=== PATIENT | female | born 1960 | race Caucasian/White ===

== ENCOUNTER 2024-01-21 04:09 | Emergency (ER) | payer BC, SELFPAY ==
[2024-01-21] VITALS (15 sets, daily range): BP systolic 132–191; BP diastolic 67–86; BMI 37.0
[2024-01-21 04:34] LABS: % Basophils 0.4 % (0-2); % Immature Granulocytes 0.2 % (0-0.5); % Lymphocytes 26.2 % (20.5-51.1); % Monocytes 10.1 % (1.7-9.3); % Neutrophils 58.1 % (42.2-75.2); Absolute Eosinophils 0.4 10^3/uL (0-0.7); Absolute Lymphocytes 2.2 10^3/uL (1.2-3.4); Absolute Monocytes 0.9 10^3/uL (0.1-0.6); Absolute Neutrophils 4.9 10^3/uL (1.4-6.5); Hematocrit 35.4 % (37.0-47.0); Hemoglobin 11.4 g/dL (12.0-16.0); Mean Corp Hgb Conc. 32.2 g/dL (33.0-37.0); Mean Corpuscular Hgb 24.3 pg (27.0-31.0); Mean Corpuscular Volume 75.3 fL (81.0-99.0); Mean Platelet Volume 8.8 fL (7.4-10.4); Nucleated Red Blood Cells % 0 %; Platelet Count 354 10^3/uL (130-400); Red Cell Dist. Width 17.5 % (11.5-14.5); White Blood Cell Count 8.5 10^3/uL (4.8-10.8)
[2024-01-21 04:57] LABS: ALT (SGPT) 21 U/L (0-35); AST (SGOT) 25 U/L (14-36); Albumin 3.9 g/dl (3.5-5.0); Alkaline Phosphatase 102 U/L (38-126); Blood Urea Nitrogen 15 mg/dl (7-17); Calcium 9.2 mg/dl (8.4-10.2); Carbon Dioxide 23 mmol/L (22-30); Chloride 108 mmol/L (98-107); Glucose 114 mg/dl (70-99); Lipase 112 U/L (23-300); Potassium 4.1 mmol/L (3.5-5.1); Sodium 141 mmol/L (135-145); Total Bilirubin 0.4 mg/dl (0.2-1.3); eGFR > 60.00
[2024-01-21 05:14] LABS: NT-proBNP 1190 pg/ml; Troponin I < 0.012 ng/ml
--- NOTE | 2024-01-21 06:00 | ED.GENMED ---
History of Present Illness
General
Chief Complaint: Breathing Problem
Time Seen by Provider: 01/21/24 06:00
Travel History
Have you had any contact with someone who has COVID-19?: No
Do you have any symptoms of coronavirus? Fever > 100 degrees, chills, cough, shortness of breath, sore throat, loss of taste or smell, muscle aches, or headache?: No
History of Present Illness
History of Present Illness:
HPI: A few hours ago, the patient started having abrupt onset pleuritic chest discomfort. This feels unlike asthma exacerbation and feels unlike the time she had thoracic aortic dissection 4 months ago. She states that she has had some
complications from the dissection and had to go back to the OR for revision�this was managed at [facility]. She has no lower extremity edema. However she does report that her left lower extremity is usually larger than her right lower extremity
chronically. The patient has no symptoms into the left upper extremity.
EXAM:
GENERAL: Well appearing in no distress, room air sats varied from 93-97%
HEENT: Moist oral mucosa
CARDIOVASCULAR: No murmurs, normal heart rate, regular rhythm, mild chest wall tenderness, surgical wound noted to the anterior chest wall in the midline, vehicle monitor technician device noted anterior chest wall
PULMONARY: Very mild respiratory distress, with some increased work of breathing, breath sounds are clear and equal
ABDOMEN: Soft with no peritoneal signs, no tenderness
NEUROLOGIC: Excellent strength all extremities, no coordination deficits
PSYCHIATRIC: Appropriate mental status, normal insight and judgement
EXTREMITIES: Nontender, no edema to the right, trace on the left, moves all extremities equally, easily palpable left radial and left ulnar artery pulses
SKIN: No rash, no lesions
TIME OF INITIAL ENCOUNTER: 6:10 AM
NUMBER AND COMPLEXITY OF PROBLEMS ADDRESSED AT THE ENCOUNTER
� Chronic conditions affecting care: Asthma, former smoker, high blood pressure, has had AAA repair
� Acute Exacerbation and/or Progression of Chronic Illness: This is an acute problem
� Differential Diagnosis includes: PE, asthma exacerbation, nonspecific pleuritic chest wall pain,
AMOUNT AND/OR COMPLEXITY OF DATA TO BE REVIEWED AND ANALYZED
� I performed an independent evaluation of and my interpretation is:
EKG: Sinus 61, left axis deviation, nonspecific ST abnormality
CT: CTA personally reviewed�no evidence for PE
X-rays:
Laboratory Studies: White count 8.5, hemoglobin 11.4, chemistries unremarkable, troponin less than 0.012, BNP 1190
Other:
� Review of other/old records: The patient was transferred to [facility] 4 months ago for aortic dissection; the patient was admitted with asthma exacerbation in 2019
� Clinical information was obtained by an independent historian: None needed
� Prescriptions/Medications Considered but not given:
� Further testing considered but not performed:
RISK OF COMPLICATIONS AND/OR MORBIDITY OR MORTALITY OF PATIENT MANAGEMENT
� Social determinants of health affecting care:
� Discussion with other providers: As the radiologist did comment on a focal dissection involving the left axillary and subclavian artery, I did speak to vascular, Dr. Conteh and the BOOSTER PUMP OPERATOR; Dr. Conteh did evaluate the patient in the ED
and does not have concern for the axillary/subclavian artery finding on CTA. However he did ask me to contact cardiothoracic surgery here to review the images of the chest. I spoke to Dr Luna was not able to immediately review the images on
the computer but I did send a video of the CTA to his phone. He does encourage close outpatient follow-up with their surgeon at [facility].
� Escalation of care including admission/observation vs risk of discharge considered: We initially try Toradol for pain. Her lungs are clear. CTA of the chest obtained to evaluate for PE. On reassessment at 8:30 AM, the
patient feels improved after Toradol was given. Although BNP is elevated, the patient's main symptom is pain. The pain has improved with Toradol. I have relatively low suspicion for heart failure.
Past History
Past History
ED Past Medical History: Asthma, HTN, Hypercholesterolemia, Psychiatric (depression) and Other (PNA)
ED Past Surgical History: Cholecystectomy
Social History
Tobacco: Former smoker
Alcohol: Occasional
Drug: None
Personal:
Living: with family
Employment: Employed
Family History
Family History: Diabetes
Phy Exam
Physical Exam
Physical Exam:
See HPI
Scores
Heart Failure Risk
Heart Failure Risk Score: Not Applicable
Course
Orders/Labs/Results
Orders:
Orders
01/21/24 04:13
Electrocardiogram (*1) Urgent
Reason for Study: Shortness of Breath
EKG- Treatment ONCE
01/21/24 04:27
Complete Blood Count/With Diff Urgent
Comprehensive Metabolic Panel Urgent
Lipase Urgent
NT-proBNP Urgent
Troponin I Urgent
01/21/24 06:12
CT Chest Pe Study Urgent
Comment:
Reason For Exam: abrupt pleuritic CP/SOB; recent dissection repair
Ketorolac [Toradol] 15 mg IV NOW STA
01/21/24 06:36
PT/INR [Prothrombin Time] Urgent
PTT Urgent
01/21/24 08:44
Troponin I Urgent
Abnormal Lab Results
01/21/24
04:27
Hgb 11.4 L g/dL
(12.0-16.0)
Hct 35.4 L %
(37.0-47.0)
MCV 75.3 L fL
(81.0-99.0)
MCH 24.3 L pg
(27.0-31.0)
MCHC 32.2 L g/dL
(33.0-37.0)
RDW 17.5 H %
(11.5-14.5)
Absolute Monos (auto) 0.9 H 10^3/uL
(0.1-0.6)
Monocytes % 10.1 H %
(1.7-9.3)
Chloride 108 H mmol/L
(98-107)
Glucose 114 H mg/dl
(70-99)
01/21/24 04:27
01/21/24 04:27
Vital Signs
Initial and Last Documented VS:
Initial Vital Signs
Temp Pulse Resp BP Pulse Ox
98.3 F 63 18 159/80 97
01/21/24 04:13 01/21/24 04:13 01/21/24 04:13 01/21/24 04:13 01/21/24 04:13
Last Documented Vital Signs
Temp Pulse Resp BP Pulse Ox
98.3 F 60 17 153/79 95
01/21/24 04:13 01/21/24 12:15 01/21/24 12:15 01/21/24 12:00 01/21/24 12:15
*Critical Care Note
Total Time (30-74mins, 75-104mins- exclusive of procedures): Not Applicable
ED Attending Note
-
Portions of this chart may have been created with voice recognition software.� Occasional wrong word or��sound alike� substitutions may have occurred due to the inherent limitations of voice recognition software.
Discharge Plan
Departure
Patient Disposition: Home (Routine Discharge)
Date of Disposition: 01/21/24
Time of Disposition: 12:28
Patient with high blood pressure during this ER visit?: Yes
Discharge Problem:
Chest pain, pleuritic
Instructions: Chest Pain (DC)
Prescriptions:
No Action
paroxetine HCl [Paxil CR] 37.5 MG tablet extended release 24 hr
37.5 mg PO DAILY@1600
ropinirole 1 MG tablet
3 mg PO TID
losartan 50 mg Tablet
50 mg PO DAILY
atorvastatin 40 mg Tablet
40 mg PO DAILY
metoprolol succinate 100 mg Tablet Extended Release 24 Hr
50 mg PO BID
aspirin 81 mg Tablet,Delayed Release (Dr/Ec)
81 mg PO DAILY
famotidine 20 mg Tablet
20 mg PO DAILY
Referrals:
Brittany Bennett MD [Family Provider] -
Activity Restrictions/Additional Instructions:
The cause of your pain is unclear. There is no clear sign of aortic dissection at this time and we do see the grafting in place at the aortic arch. There was some concern for dissection at the left axillary artery therefore we had Dr. Conteh,
vascular doctor, evaluate you. I have given you his contact information for follow-up as an outpatient. He also asked me to discuss the case with our cardiothoracic surgeon. Cardiothoracic surgeon feels that your case is a little bit more complex
and recommends that you urgently follow-up with your cardiothoracic surgeon at [facility].
Interventions
Interventions:
*Risk Screen - Suicide Last Done: 01/21/24 12:25
*General Assessment Last Done: 01/21/24 04:13
*Neglect/Abuse Screening Last Done: 01/21/24 12:25
ED- Fall Risk Assessment Last Done: 01/21/24 05:13
*ED COVID-19 Vaccine History Last Done: 01/21/24 12:25
*Nursing Disposition Last Done: 01/21/24 12:52
ED- Cardiac Assessment Last Done: 01/21/24 05:13
ED- Pulmonary Assessment Last Done: 01/21/24 05:13
Discharge Date and Time
Discharge Date/Time: 01/21/24 12:53
Print Language: BERMUDIAN
[2024-01-21] MEDS: TORADOL 15 MG IV (06:30)
[2024-01-21 06:56] LABS: INR 1.11; PT 14.1 Sec (11.4-14.6)
[2024-01-21 06:57] LABS: APTT 31.5 Sec (23.4-35.0)
[2024-01-21 09:32] LABS: Troponin I < 0.012 ng/ml
--- NOTE | 2024-01-21 10:01 | CON.VAS ---
Addendum entered and electronically signed by Jesús Conteh MD 01/21/24 12:54:
Seen and examined in emergency room with [facility]. Agree with findings noted below. 63-year-old female who in August of this year underwent ascending and hemiarch repair by cardiac surgery at the [facility] for acute type a
dissection. Subsequently 3 months later underwent planned staged TEVAR with [place] thoracic branch graft (branched covered stent into left subclavian artery). Proximal landing zone 2. Now patient presents with relatively acute onset this morning of
slight dyspnea and chest discomfort with inspiration. No back pain. No left arm pain. No weakness or claudication type symptoms in the left arm. No other complaints. She was given Toradol which improved her pain somewhat. On exam/she is awake
and alert. Head is normocephalic and atraumatic. Eyes are anicteric. Neck is soft without jugular venous distention. She seems slightly uncomfortable when she takes deep breaths then. Bilateral upper extremities with easily palpable radial
pulses bilaterally. Hands are both pink and warm and well-perfused. Abdomen is soft, nondistended, nontender. Groins are flat bilaterally. Feet are both warm with palpable pedal pulses bilaterally.
CT angiogram reviewed. Ascending aortic stent graft appears well. No evidence of any pseudoaneurysm. TEVAR stent graft with left subclavian artery stent all look well-positioned. No evidence of endoleak. At the distal edge of the left
subclavian stent graft there is a focal nonflow limiting dissection.
Plan/ No evidence of any acute finding to explain the pain from a vascular perspective. Aorta and the left subclavian artery/axillary artery look well with the exception of the small nonflow limiting dissection. She has no symptoms to the left
arm. We were asked to evaluate regarding this dissection. Conveyed with emergency room attending that nothing further from my standpoint. Would recommend cardiac surgery to evaluate given recent sternotomy/ascending aortic repair to evaluate for
any other cause. Consider cardiology also if needed. I discussed with patient when she is discharged to follow-up with her [facility] cardiac surgery team as well.
Original Note:
Consultation
Consultation Request
Performing Provider: Wero
Reason for Consultation: Axillary/subclavian artery dissection
Medical History
-
Chief Complaint: Chest pain
History of Present Illness:
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 Patient arrives today to the ER for sudden onset chest pain and shortness of breath. Patient
admits this chest pain does not feel similar to when she had her dissection 4 months ago. Patient was given Toradol which has resolved her pain at this point. Chest CT performed in the ER suggests: Thoracic and thoracoabdominal aortic endograft is
patent, as is the stented left subclavian artery. Aortic dissection extends to the most inferior imaged portion, unchanged compared to prior CT. No dissection of the aortic root or ascending thoracic aorta. Focal dissection involving the left
axillary and subclavian artery, which does not appear to be flow-limiting. This area was not well opacified on prior CTA.
Vascular consult for finding of focal dissection involving left axillary and subclavian artery. Patient seen at bedside in the ER.
Patient denies any arm symptoms. No pain, numbness or tingling, coolness, or decrease sensation. Arms and hands are warm, pink, radial pulses+2, +2 brachial pulses.
Past Medical History
Past Medical History: Asthma, HTN, Hypercholesterolemia and Psychiatric
Past Surgical History: Cholecystectomy and Other (Endograft to the aortic arch and subclavian artery done at [facility] 08/2023, sternotomy)
Social History
Tobacco: Former Smoker
Alcohol: Occasional
Drug: None
Personal:
Living: With Family
Employment: Employed
Family History
Family History: Diabetes
Allergies / Home Medications
Allergy/AdvReac Type Severity Reaction Status Date / Time
amoxicillin Allergy Nausea Verified 09/08/23 00:30
amoxicillin trihydrate Allergy Nausea Verified 09/08/23 00:30
[From Augmentin]
potassium clavulanate Allergy Nausea Verified 09/08/23 00:30
[From Augmentin]
�Medication �Instructions �Recorded �Confirmed �Type
paroxetine HCl 37.5 mg 37.5 mg PO DAILY@1600 10/24/14 01/21/24 History
tablet,extended release 24 hr
(Paxil CR)
ropinirole 1 mg tablet 3 mg PO TID 10/27/18 01/21/24 History
aspirin 81 mg tablet,delayed 81 mg PO DAILY 01/21/24 01/21/24 History
release
atorvastatin 40 mg tablet 40 mg PO DAILY 01/21/24 01/21/24 History
famotidine 20 mg tablet 20 mg PO DAILY 01/21/24 01/21/24 History
losartan 50 mg tablet 50 mg PO DAILY 01/21/24 01/21/24 History
metoprolol succinate 100 mg 50 mg PO BID 01/21/24 01/21/24 History
tablet,extended release 24 hr
Review of Systems
-
History Source: Patient
All other systems: Negative unless noted
Constitutional: Reports No Symptoms
EENT: Reports No Symptoms
Respiratory: Reports Trouble Breathing (Resolved)
Cardiac: Reports Chest Pain (Resolved)
Vascular: Denies Leg Pain / Claudication
Abdomen/GI: Reports No Symptoms
: Reports No Symptoms
Musculoskeletal: Reports No Symptoms
Skin: Reports No Symptoms
Neurological: Reports No Symptoms
Endocrine: Reports No Symptoms
Physical Exam
Vital Signs
Temp Pulse Resp BP Pulse Ox
98.3 F 62 20 174/82 94
01/21/24 04:13 01/21/24 09:45 01/21/24 09:45 01/21/24 09:30 01/21/24 09:45
Lab Results
01/21/24 04:27
01/21/24 04:27
Troponin I < 0.012 ng/ml 01/21/24 08:44
Cfb-K-Ynfaagcwjac Pept 1190 pg/ml 01/21/24 04:27
Physical Exam
General: No Apparent Distress
HEENT: Normocephalic and Atraumatic
Respiratory: Non Labored Respirations
Cardiac: Other (+2 radial and brachial pulses bilaterally); Negative JVD
GI: Soft, Non Tender and Non Distended
Musculoskeletal: No Clubbing, No Cyanosis and No Edema
Skin: Warm
Neuro: Awake, Alert and Oriented
Psych: Calm
Assessment / Plan
-
63-year-old female with recent past medical history of Type A aortic dissection with transfer to [facility] for endograft procedure
Now presents with new onset chest pain
Plan:
-CT chest reviewed by Dr. Conteh with patient
-No intervention needed from vascular standpoint
-Recommend CT surgery to review CT as well
-Follow-up with [place] surgeons jose elias
Data Reviewed
-
CT Scan: Discussed with Physician
Labs: Labs Reviewed by me
== END 2024-01-21 12:53 | disposition home or self-care (01) ==
LOC: EMR 04:09
PROVIDERS: Emergency Medicine; EMERGENCY PHYSICIAN Emergency Medicine; FAMILY PHYSICIAN Internal Medicine; OTHER PHYSICIAN Surgery Vascular Surgery
DX: R07.81 Pleurodynia (principal); R06.00 Dyspnea, unspecified; R07.89 Other chest pain; I71.00 Dissection of unspecified site of aorta; I10 Essential (primary) hypertension; E78.00 Pure hypercholesterolemia, unspecified; F32.A Depression, unspecified; J45.909 Unspecified asthma, uncomplicated; Z87.01 Personal history of pneumonia (recurrent); Z87.891 Personal history of nicotine dependence; Z90.49 Acquired absence of other specified parts of digestive tract; Z88.1 Allergy status to other antibiotic agents
CPT/HCPCS: 99285; 96374; 71275; 80053; 83690; 83880; 84484; 85025; 85610; 85730; 93005; Q9967

== ENCOUNTER 2024-02-24 11:54 | Emergency (ER) | payer BC, SELFPAY ==
[2024-02-24] VITALS (8 sets, daily range): BP systolic 131–176; BP diastolic 63–72; BMI 38.3
[2024-02-24 12:37] LABS: % Basophils 0.1 % (0-2); % Eosinophils 4.4 % (0-6); % Immature Granulocytes 0.3 % (0-0.5); % Monocytes 9.9 % (1.7-9.3); % Neutrophils 53.3 % (42.2-75.2); Absolute Eosinophils 0.4 10^3/uL (0-0.7); Absolute Lymphocytes 2.8 10^3/uL (1.2-3.4); Absolute Monocytes 0.9 10^3/uL (0.1-0.6); Absolute Neutrophils 4.6 10^3/uL (1.4-6.5); Hematocrit 35.7 % (37.0-47.0); Hemoglobin 11.8 g/dL (12.0-16.0); Mean Corp Hgb Conc. 33.1 g/dL (33.0-37.0); Mean Corpuscular Hgb 25.3 pg (27.0-31.0); Mean Corpuscular Volume 76.4 fL (81.0-99.0); Mean Platelet Volume 9.3 fL (7.4-10.4); Nucleated Red Blood Cells % 0 %; Platelet Count 272 10^3/uL (130-400); Red Blood Cell Count 4.67 10^6/uL (4.20-5.40); Red Cell Dist. Width 17.6 % (11.5-14.5); White Blood Cell Count 8.7 10^3/uL (4.8-10.8)
--- NOTE | 2024-02-24 12:53 | ED.GENMED ---
History of Present Illness
General
Chief Complaint: Chest Pain
Source: patient and records
Time Seen by Provider: 02/24/24 12:13
History of Present Illness
History of Present Illness:
63-year-old female with past medical history of AAA with dissection status postrepair, hypertension, asthma presenting to the emergency department for evaluation of a couple of days feeling some intermittent chest discomfort but accompanied with
persistent shortness of breath, exertional dyspnea and fatigue. Patient states the chest discomfort is described to be a fleeting sharp sensation on the left side of her chest lasting usually only a few seconds. She attempted to contact her
health outcomes liaison and primary care provider but was referred to the ER to be further evaluated. Patient was diagnosed with the aortic dissection back in August of this year and had revision of this done in November. She notes that she is scheduled for a
pharmacologic stress test and repeat CT imaging within the next 2 weeks. Patient denies any fevers or infectious symptoms, pleurisy, hemoptysis or any other concerns
Past History
Past History
ED Past Medical History: Asthma, HTN, Hypercholesterolemia, Psychiatric (depression) and Other (PNA)
ED Past Surgical History: Cardiac, Cholecystectomy, Orthopedic and Tonsilectomy
Social History
Tobacco: Former smoker
Alcohol: Occasional
Drug: None
Personal:
Living: with family
Employment: Employed
Family History
Family History: Diabetes
Review of Systems
Review of Systems
All Other Systems: ROS reviewed and negative except as documented in HPI and ROS
Phy Exam
Physical Exam
Physical Exam:
GENERAL: Alert , in no apparent distress
EYE: clear conjunctiva b/l
HEAD: NCAT
ENT: o/p clr, mmm.
CARDIAC: Regular rate and rhythm .
LUNGS: Clear breath sounds bilaterally, no acute respiratory distress, no wheezes/rales/rhonchi
ABDOMEN: Soft, without focal tenderness, no r/g, no cvat, no pulsatile abdominal masses
NEUROLOGICAL: Alert and oriented
SKIN: Warm and dry, skin intact.
MUSCULOSKELETAL: No edema, well perfused. Easily palpable pulses throughout the bilateral upper and lower extremities
PSYCH: Normal and appropriate interaction.
Scores
Heart Failure Risk
Heart Failure Risk Score: Not Applicable
Heart Score for Chest Pain Patients
STEMI patient?: Not applicable
Withdrawal Assessment of Alcohol
Withdrawal Assessment Completed?: Not applicable
Course
Orders/Labs/Results
Orders:
Orders
02/24/24 11:56
ECG [Electrocardiogram (*1)] Urgent
Reason for Study: Chest Pain
EKG- Treatment ONCE
02/24/24 12:27
Complete Blood Count/With Diff Urgent
02/24/24 12:37
CT Chest/abd/pelvis Angio W/wo Urgent
Comment:
Reason For Exam: hx of dissection/aneurysm. chest pain/SOB
02/24/24 12:54
Basic Metabolic Panel Stat
02/24/24 13:58
Troponin I Urgent
02/24/24 14:00
Potassium Stat
02/24/24 15:27
Troponin I Urgent
Abnormal Lab Results
02/24/24
12:27
Hgb 11.8 L g/dL
(12.0-16.0)
Hct 35.7 L %
(37.0-47.0)
MCV 76.4 L fL
(81.0-99.0)
MCH 25.3 L pg
(27.0-31.0)
RDW 17.6 H %
(11.5-14.5)
Absolute Monos (auto) 0.9 H 10^3/uL
(0.1-0.6)
Monocytes % 9.9 H %
(1.7-9.3)
02/24/24 12:27
02/24/24 14:00
Vital Signs
Initial and Last Documented VS:
Initial Vital Signs
Temp Pulse Resp BP Pulse Ox
98.1 F 64 18 131/72 97
02/24/24 12:00 02/24/24 12:00 02/24/24 12:00 02/24/24 12:00 02/24/24 12:00
Last Documented Vital Signs
Temp Pulse Resp BP Pulse Ox
98.1 F 68 18 171/65 97
02/24/24 12:00 02/24/24 17:17 02/24/24 12:00 02/24/24 17:17 02/24/24 12:00
Plumber Apprentice consulted with Physician
Plumber Apprentice consulted with physician?: Yes
Name of Physician Consulted: Brionna
MDM/Problems Addressed
Differential Diagnosis Includes:
PE, recurring aneurysm/dissection, atypical ACS presentation, infectious etiology/pneumonia
MDM/Problems Addressed:
63-year-old female presenting to the emergency department for evaluation of some intermittent left-sided chest discomfort/pain as well as shortness of breath and exertional dyspnea. Patient had similar presentation back in August when she was
diagnosed with the aortic dissection/aneurysm. She has subsequently had a follow-up CT scan of the chest in December which reportedly showed patent graft and no other complications. Her fleeting chest pain seems to be against an ACS presentation. She
is hemodynamically stable, intact and equal pulses throughout the upper and lower extremities and is in no acute distress. Will obtain labs, EKG. I did order a CTA given patient's history and description of her symptoms.
Chronic conditions affecting care: Previous abdomnial surgery
Acute Exacerbation and/or Progression of Chronic Illness: Previous abdomnial surgery
*Pulse Oximetry
Patient hypoxic: no
*EKG
Interpreted by ED Provider?: Yes
Comparison EKG: no changes
Heart Rate: 65
Rate: normal
Rhythm: sinus
[place]: normal axis
Ischemia: no ischemia
*Ball Fringe Machine Operator Interpretation
Rate: normal
Rhythm: sinus
*Critical Care Note
Total Time (30-74mins, 75-104mins- exclusive of procedures): Not Applicable
Data Reviewed
Review of Other/Old Records Reveals: Labs, Records and Radiology Studies
Patient Management
Escalation/DeEscalation of care consider admission/obs:
Patients repeat troponin remains negative. Her CTA does not show any acute changes and shows reassuring healing of extensive aortic surgery. Patient has arranged follow up next week with cardiology for further testing. Aware of return precautions to
the ER. Stable for discharge home.
ED Attending Note
-
Portions of this chart may have been created with voice recognition software.� Occasional wrong word or��sound alike� substitutions may have occurred due to the inherent limitations of voice recognition software.
Discharge Plan
Departure
Patient Disposition: Home (Routine Discharge)
Date of Disposition: 02/24/24
Time of Disposition: 17:15
Patient with high blood pressure during this ER visit?: No
Condition: Fair
Covid-19: Not Applicable
Discharge Problem:
Chest pain, Shortness of breath
Instructions: Chest Pain NON-DHP Outdoor Pursuits Instructor Follow Up, BLOOD PRESSURE
Prescriptions:
No Action
paroxetine HCl [Paxil CR] 37.5 MG tablet extended release 24 hr
37.5 mg PO DAILY@1600
ropinirole 1 MG tablet
3 mg PO TID
losartan 50 mg Tablet
50 mg PO DAILY
atorvastatin 40 mg Tablet
40 mg PO DAILY
metoprolol succinate 100 mg Tablet Extended Release 24 Hr
50 mg PO BID
aspirin 81 mg Tablet,Delayed Release (Dr/Ec)
81 mg PO DAILY
famotidine 20 mg Tablet
20 mg PO DAILY
Referrals:
Brittany Bennett MD [Family Provider] - Follow up in 2-3 days
Activity Restrictions/Additional Instructions:
YOUR WORK UP TODAY IS REASSURING
YOU HAD MAJOR VASCULAR SURGERY AND THIS WILL TAKE TIME TO HEAL
FOLLOW UP WITH YOUR FLEXO PRESS OPERATOR PLANNED
RETURN FOR ANY CONCERNS.
Interventions
Interventions:
*Risk Screen - Suicide Last Done: 02/24/24 12:14
*General Assessment Last Done: 02/24/24 12:14
*Neglect/Abuse Screening Last Done: 02/24/24 12:14
ED- Fall Risk Assessment Last Done: 02/24/24 12:14
*ED COVID-19 Vaccine History Last Done: 02/24/24 12:14
*Nursing Disposition Last Done: 02/24/24 17:32
ED- Cardiac Assessment Last Done: 02/24/24 12:14
Discharge Date and Time
Discharge Date/Time: 02/24/24 17:33
Print Language: [id number]
[2024-02-24 13:38] LABS: Blood Urea Nitrogen 15 mg/dl (7-17); Calcium 8.9 mg/dl (8.4-10.2); Carbon Dioxide 25 mmol/L (22-30); Chloride 107 mmol/L (98-107); Estimated Creatinine Clearance > 125 ml/min; Glucose 77 mg/dl (70-99); Sodium 139 mmol/L (135-145); eGFR > 60.00
[2024-02-24 14:25] LABS: Potassium 3.8 mmol/L (3.5-5.1)
[2024-02-24 14:41] LABS: Troponin I < 0.012 ng/ml
[2024-02-24 16:07] LABS: Troponin I < 0.012 ng/ml
== END 2024-02-24 17:33 | disposition home or self-care (01) ==
LOC: EMR 11:54
PROVIDERS: Emergency Medicine; Physician Assistant Medical; EMERGENCY PHYSICIAN Emergency Medicine; FAMILY PHYSICIAN Internal Medicine
DX: R07.89 Other chest pain (principal); R06.02 Shortness of breath; R53.83 Other fatigue; I10 Essential (primary) hypertension; J45.909 Unspecified asthma, uncomplicated; E78.00 Pure hypercholesterolemia, unspecified; F32.A Depression, unspecified; Z86.79 Personal history of other diseases of the circulatory system; Z87.01 Personal history of pneumonia (recurrent); Z87.891 Personal history of nicotine dependence; Z79.82 Long term (current) use of aspirin; Z90.49 Acquired absence of other specified parts of digestive tract; Z88.1 Allergy status to other antibiotic agents
CPT/HCPCS: 99285; 71275; 74174; 80048; 84132; 84484; 85025; 93005; Q9967

== ENCOUNTER → 2024-03-24 06:47 | Outpatient (REF) | payer BC, SELFPAY | LOC: RAD 06:47 | PROVIDERS: ATTENDING PHYSICIAN Nurse Practitioner Gerontology; FAMILY PHYSICIAN Internal Medicine | DX: Z98.890 Other specified postprocedural states (principal) | CPT/HCPCS: 71250 ==

== ENCOUNTER → 2024-08-25 13:34 | Outpatient (REF) | payer BC, SELFPAY | LOC: RAD 13:34 | PROVIDERS: ATTENDING PHYSICIAN Nurse Practitioner Gerontology; FAMILY PHYSICIAN Internal Medicine | DX: Z98.890 Other specified postprocedural states (principal); I71.00 Dissection of unspecified site of aorta | CPT/HCPCS: 71275; 74174; Q9967 ==

== ENCOUNTER 2024-10-20 10:59 | Emergency (ER) | payer BC, SELFPAY ==
[2024-10-20 11:14] VITALS: BP 115/46
[2024-10-20 11:35] LABS: % Basophils 0.2 % (0-2); % Eosinophils 0.5 % (0-6); % Immature Granulocytes 0.3 % (0-0.5); % Lymphocytes 12.6 % (20.5-51.1); % Monocytes 12.9 % (1.7-9.3); % Neutrophils 73.5 % (42.2-75.2); Absolute Lymphocytes 0.8 10^3/uL (1.2-3.4); Absolute Monocytes 0.8 10^3/uL (0.1-0.6); Absolute Neutrophils 4.6 10^3/uL (1.4-6.5); Hematocrit 40.2 % (37.0-47.0); Hemoglobin 13.2 g/dL (12.0-16.0); Mean Corp Hgb Conc. 32.8 g/dL (33.0-37.0); Mean Corpuscular Hgb 26.7 pg (27.0-31.0); Mean Corpuscular Volume 81.2 fL (81.0-99.0); Mean Platelet Volume 9.4 fL (7.4-10.4); Nucleated Red Blood Cells % 0 %; Platelet Count 199 10^3/uL (130-400); Red Blood Cell Count 4.95 10^6/uL (4.20-5.40); Red Cell Dist. Width 16.5 % (11.5-14.5); White Blood Cell Count 6.3 10^3/uL (4.8-10.8)
[2024-10-20 11:40] LABS: COVID-19 Antigen Negative (Negative)
[2024-10-20 11:55] LABS: ALT (SGPT) 29 U/L (0-35); AST (SGOT) 39 U/L (14-36); Alkaline Phosphatase 99 U/L (38-126); Blood Urea Nitrogen 15 mg/dl (7-17); Calcium 8.7 mg/dl (8.4-10.2); Carbon Dioxide 21 mmol/L (22-30); Chloride 103 mmol/L (98-107); Glucose 96 mg/dl (70-99); Potassium 3.4 mmol/L (3.5-5.1); Sodium 134 mmol/L (135-145); Total Bilirubin 0.7 mg/dl (0.2-1.3); Total Protein 6.8 g/dl (6.3-8.2); eGFR > 60.00
--- NOTE | 2024-10-20 13:12 | ED.GENMED ---
History of Present Illness
General
Chief Complaint: Cold/Flu/URI Symptoms
Time Seen by Provider: 10/20/24 13:00
History of Present Illness
History of Present Illness:
63-year-old female with history of aortic aneurysm status post repair, depression, hypertension presenting for cough and bodyaches. Patient reports symptoms for the past 3 days. Also notes fever and nausea. She reports pain with coughing and
shortness of breath. She had a telehealth visit, was diagnosed with the flu and prescribed Tamiflu. Reports known sick contacts. She has been taking Tylenol for her symptoms. Denies abdominal pain. Denies additional acute medical complaints
Past History
Past History
ED Past Medical History: Asthma, HTN, Hypercholesterolemia, Psychiatric (depression) and Other (PNA)
ED Past Surgical History: Cardiac, Cholecystectomy, Orthopedic and Tonsilectomy
Social History
Tobacco: Former smoker
Alcohol: Occasional
Drug: None
Personal:
Living: with family
Employment: Employed
Family History
Family History: Diabetes
Phy Exam
Physical Exam
Physical Exam:
General: Well-appearing, no clinical signs of dehydration, nontoxic and in no acute distress
HEENT: protecting airway
Neck: appears supple
CV: Normal heart rate, regular rhythm
Resp: No accessory muscle use, no increased work of breathing, mild scattered expiratory wheezing
Abd: No distention
Extremities: No deformities, no swelling
Neuro: alert, no focal neurologic deficit
: deferred
Rectal: deferred
Psych: Normal affect
Skin: Intact
Course
Orders/Labs/Results
Orders:
Orders
10/20/24 11:19
COVID-19 Antigen Urgent
Source: Nasal Swab
Complete Blood Count/With Diff Urgent
Comprehensive Metabolic Panel Urgent
Influenza A+B Rapid Molecular Urgent
SHABBIR Source: Nasal Swab
Specimen Description:
Abnormal Lab Results
10/20/24
11:19
MCH 26.7 L pg
(27.0-31.0)
MCHC 32.8 L g/dL
(33.0-37.0)
RDW 16.5 H %
(11.5-14.5)
Absolute Lymphs (auto) 0.8 L 10^3/uL
(1.2-3.4)
Absolute Monos (auto) 0.8 H 10^3/uL
(0.1-0.6)
Lymphocytes % 12.6 L %
(20.5-51.1)
Monocytes % 12.9 H %
(1.7-9.3)
Sodium 134 L mmol/L
(135-145)
Potassium 3.4 L mmol/L
(3.5-5.1)
Carbon Dioxide 21 L mmol/L
(22-30)
AST 39 H U/L
(14-36)
10/20/24 11:19
10/20/24 11:19
Vital Signs
Initial and Last Documented VS:
Initial Vital Signs
Temp Pulse Resp BP Pulse Ox
98.9 F 66 16 115/46 94
10/20/24 11:14 10/20/24 11:14 10/20/24 11:14 10/20/24 11:14 10/20/24 11:14
Last Documented Vital Signs
Temp Pulse Resp BP Pulse Ox
98.9 F 66 16 115/46 94
10/20/24 11:14 10/20/24 11:14 10/20/24 11:14 10/20/24 11:14 10/20/24 11:14
MDM/Problems Addressed
MDM/Problems Addressed:
63-year-old female with history of aortic aneurysm repair presenting for fever, body aches, cough. Vital signs are normal.
On exam patient is resting comfortably, no acute distress or discomfort. Symptoms appear most consistent with viral syndrome. Patient overall nontoxic in appearance, no respiratory distress with scant expiratory wheezing. Suspect a component of
bronchitis. Patient had screening laboratory analysis prior to my assessment as well as viral swabs, positive for influenza. Patient is already being prescribed OTC cough medication and Tamiflu. Will add on a steroid pack. However otherwise feel
stable for discharge with continued outpatient supportive therapy given hemodynamic stability. Return precautions discussed and patient verbalized understanding
*Critical Care Note
Total Time (30-74mins, 75-104mins- exclusive of procedures): Not Applicable
ED Attending Note
-
Portions of this chart may have been created with voice recognition software.� Occasional wrong word or��sound alike� substitutions may have occurred due to the inherent limitations of voice recognition software.
Discharge Plan
Departure
Prescriptions:
No Action
paroxetine HCl [Paxil CR] 37.5 MG tablet extended release 24 hr
37.5 mg PO DAILY@1600
ropinirole 1 MG tablet
3 mg PO TID
losartan 50 mg Tablet
50 mg PO DAILY
atorvastatin 40 mg Tablet
40 mg PO DAILY
metoprolol succinate 100 mg Tablet Extended Release 24 Hr
50 mg PO BID
aspirin 81 mg Tablet,Delayed Release (Dr/Ec)
81 mg PO DAILY
famotidine 20 mg Tablet
20 mg PO DAILY
Interventions
Interventions:
*Risk Screen - Suicide Last Done: 10/20/24 11:15
*Neglect/Abuse Screening Last Done: 10/20/24 11:15
Discharge Date and Time
Print Language: DIVEHI
[2024-10-20 13:23] VITALS: BP 118/50
== END 2024-10-20 13:36 | disposition home or self-care (01) ==
LOC: EMR 10:59
PROVIDERS: Emergency Medicine; EMERGENCY PHYSICIAN Student in an Organized Health Care Education/Training Program; FAMILY PHYSICIAN Internal Medicine
DX: J10.1 Influenza due to other identified influenza virus with other respiratory manifestations (principal); J45.909 Unspecified asthma, uncomplicated; I10 Essential (primary) hypertension; E78.00 Pure hypercholesterolemia, unspecified; Z11.52 Encounter for screening for COVID-19; Z90.49 Acquired absence of other specified parts of digestive tract; Z86.79 Personal history of other diseases of the circulatory system; Z87.891 Personal history of nicotine dependence; Z98.890 Other specified postprocedural states
CPT/HCPCS: 99283; 80053; 85025; 87502; 87811

== ENCOUNTER 2024-10-29 14:19 | Emergency (ER) | payer BC, SELFPAY ==
[2024-10-29 14:22] VITALS: BP 166/82
--- NOTE | 2024-10-29 15:56 | ED.GENMED ---
History of Present Illness
General
Chief Complaint: Abdominal Pain
Source: patient
Exam Limitations: none
Time Seen by Provider: 10/29/24 15:41
History of Present Illness
History of Present Illness:
63-year-old female with history of aortic aneurysm surgery on aspirin also with coronary artery disease presents complaining of persistent illness. She was here about 10 days ago and diagnosed with influenza. The cough from that and fever seem to
have resolved however more recently she developed fever and abdominal pain with nausea vomiting and diarrhea. The pain is cramping in nature. She also notes a cough currently. She has a fever as recently as this morning. No known sick contacts
otherwise. No other complaints at this time
Past History
Past History
ED Past Medical History: Asthma, HTN, Hypercholesterolemia, Psychiatric (depression) and Other (PNA)
ED Past Surgical History: Cardiac, Cholecystectomy, Orthopedic and Tonsilectomy
Social History
Tobacco: Former smoker
Alcohol: Occasional
Drug: None
Personal:
Living: with family
Employment: Employed
Family History
Family History: Diabetes
Phy Exam
Physical Exam
Physical Exam:
General: Well-appearing female no acute respiratory distress
HEENT: Normocephalic atraumatic mucosa dry
Heart: Regular rate and rhythm
Lungs: Slightly coarse throughout
Abdomen soft mild diffuse tenderness no guarding or rebound
Extremities: No cyanosis
Course
Orders/Labs/Results
Orders:
Orders
10/29/24 15:53
0.9% Sodium Chloride 1000 ml [Nss] 1,000 ml IV BOLUS
Famotidine [Pepcid] 20 mg IV NOW STA
Ketorolac [Toradol] 15 mg IV NOW STA
Ondansetron Injectable [Zofran] 4 mg IV NOW STA
10/29/24 15:54
CR Chest - 2 Views Urgent
Comment:
Reason For Exam: cough
10/29/24 16:09
Complete Blood Count/With Diff Urgent
Comprehensive Metabolic Panel Urgent
Lipase Urgent
10/29/24 17:18
Ropinirole [Requip] 3 mg PO NOW STA
10/29/24 18:14
Acetaminophen [Tylenol] 1,000 mg PO NOW STA
Abnormal Lab Results
10/29/24
16:09
RBC 5.49 H 10^6/uL
(4.20-5.40)
MCH 26.0 L pg
(27.0-31.0)
MCHC 31.5 L g/dL
(33.0-37.0)
RDW 16.6 H %
(11.5-14.5)
Abs Immat Gran (auto) 0.1 H 10^3/uL
(0-0.05)
Absolute Neuts (auto) 7.0 H 10^3/uL
(1.4-6.5)
Absolute Lymphs (auto) 0.6 L 10^3/uL
(1.2-3.4)
Immature Gran % 0.6 H %
(0-0.5)
Neutrophils % 85.7 H %
(42.2-75.2)
Lymphocytes % 7.3 L %
(20.5-51.1)
Glucose 102 H mg/dl
(70-99)
AST 56 H U/L
(14-36)
ALT 44 H U/L
(0-35)
10/29/24 16:09
10/29/24 16:09
Vital Signs
Initial and Last Documented VS:
Initial Vital Signs
Temp Pulse Resp BP Pulse Ox
98.3 F 100 20 166/82 97
10/29/24 14:22 10/29/24 14:22 10/29/24 14:22 10/29/24 14:22 10/29/24 14:22
Last Documented Vital Signs
Temp Pulse Resp BP Pulse Ox
99.8 F 88 18 137/70 95
10/29/24 18:10 10/29/24 19:23 10/29/24 19:23 10/29/24 18:00 10/29/24 19:16
MDM/Problems Addressed
Differential Diagnosis Includes:
Patient main issue is nausea vomiting some abdominal pain and diarrhea. This was preceded by having influenza virus about 10 days ago. Still some coarse breath sounds on exam. Will perform chest x-ray to evaluate for pneumonia. Labs including
lipase ordered fluids Zofran Toradol Pepcid ordered
*Critical Care Note
Total Time (30-74mins, 75-104mins- exclusive of procedures): Not Applicable
Update Note
Update Note:
Patient reevaluated multiple times. No further vomiting. She is now tolerating crackers and water. Her temperature did go up to 99.8 Tylenol was given. She is feeling better. She was hydrated chest x-ray clear. Suspect underlying viral
illness. No stool cultures provided today. Will prescribe Zofran. Stable for discharge
ED Attending Note
-
Portions of this chart may have been created with voice recognition software.� Occasional wrong word or��sound alike� substitutions may have occurred due to the inherent limitations of voice recognition software.
Discharge Plan
Departure
Patient Disposition: Home (Routine Discharge)
Date of Disposition: 10/29/24
Time of Disposition: 19:59
Patient with high blood pressure during this ER visit?: No
Discharge Problem:
Vomiting
Instructions: Nausea and Vomiting, Adult (DC)
Prescriptions:
New
ondansetron 4 mg tablet,disintegrating
4 mg PO Q8H PRN (Reason: nausea and vomiting) Qty: 10 0RF
No Action
paroxetine HCl [Paxil CR] 37.5 MG tablet extended release 24 hr
37.5 mg PO DAILY@1600
ropinirole 1 MG tablet
3 mg PO TID
losartan 50 mg Tablet
50 mg PO DAILY
atorvastatin 40 mg Tablet
40 mg PO DAILY
metoprolol succinate 100 mg Tablet Extended Release 24 Hr
50 mg PO BID
aspirin 81 mg Tablet,Delayed Release (Dr/Ec)
81 mg PO DAILY
famotidine 20 mg Tablet
20 mg PO DAILY
methylprednisolone [Medrol (Corey)] 4 mg tablets,dose pack
See Rx Instructions .ROUTE .COMPLEX Qty: 21 0RF
Rx Instructions:
for 6 days
Referrals:
Brittany Bennett MD [Family Provider] -
Activity Restrictions/Additional Instructions:
Drink plenty clear liquids. Use Zofran as needed for nausea. Advance to bland diet as tolerated. Return if worse otherwise
Interventions
Interventions:
*Risk Screen - Suicide Last Done: 10/29/24 14:24
*General Assessment Last Done: 10/29/24 16:10
*Neglect/Abuse Screening Last Done: 10/29/24 16:10
*ED- Fall Risk Assessment Last Done: 10/29/24 16:10
*ED COVID-19 Vaccine History Last Done: 10/29/24 16:10
BR-Msglto-Qbxdhnpauq Assessment Last Done: 10/29/24 16:14
Discharge Date and Time
Print Language: DANISH
[2024-10-29] MEDS: NSS 1000 IV (16:04)
[2024-10-29] MEDS: ZOFRAN 4 MG IV (16:05)
[2024-10-29] MEDS: PEPCID 20 MG IV (16:05)
[2024-10-29] MEDS: TORADOL 15 MG IV (16:05)
[2024-10-29 16:10] VITALS: BMI 38.2
[2024-10-29 16:12] VITALS: BP 125/73
[2024-10-29 16:22] LABS: % Eosinophils 1.2 % (0-6); % Immature Granulocytes 0.6 % (0-0.5); % Lymphocytes 7.3 % (20.5-51.1); % Monocytes 5.2 % (1.7-9.3); % Neutrophils 85.7 % (42.2-75.2); Absolute Eosinophils 0.1 10^3/uL (0-0.7); Absolute Immature Granulocytes 0.1 10^3/uL (0-0.05); Absolute Lymphocytes 0.6 10^3/uL (1.2-3.4); Absolute Monocytes 0.4 10^3/uL (0.1-0.6); Hematocrit 45.4 % (37.0-47.0); Hemoglobin 14.3 g/dL (12.0-16.0); Mean Corp Hgb Conc. 31.5 g/dL (33.0-37.0); Mean Corpuscular Volume 82.7 fL (81.0-99.0); Mean Platelet Volume 9.3 fL (7.4-10.4); Nucleated Red Blood Cells % 0 %; Platelet Count 273 10^3/uL (130-400); Red Blood Cell Count 5.49 10^6/uL (4.20-5.40); Red Cell Dist. Width 16.6 % (11.5-14.5); White Blood Cell Count 8.2 10^3/uL (4.8-10.8)
[2024-10-29 16:44] LABS: ALT (SGPT) 44 U/L (0-35); AST (SGOT) 56 U/L (14-36); Albumin 3.8 g/dl (3.5-5.0); Alkaline Phosphatase 108 U/L (38-126); Blood Urea Nitrogen 16 mg/dl (7-17); Carbon Dioxide 22 mmol/L (22-30); Chloride 106 mmol/L (98-107); Estimated Creatinine Clearance 110 ml/min; Glucose 102 mg/dl (70-99); Lipase 248 U/L (23-300); Potassium 4.6 mmol/L (3.5-5.1); Sodium 138 mmol/L (135-145); Total Bilirubin 1.3 mg/dl (0.2-1.3); Total Protein 6.9 g/dl (6.3-8.2); eGFR > 60.00
[2024-10-29 17:00] VITALS: BP 132/72
[2024-10-29] MEDS: REQUIP 3 MG PO (17:22)
[2024-10-29 18:00] VITALS: BP 137/70
[2024-10-29] MEDS: TYLENOL 1000 MG PO (18:26)
== END 2024-10-29 20:15 | disposition home or self-care (01) ==
LOC: EMR 14:19
PROVIDERS: Physician Assistant; EMERGENCY PHYSICIAN Emergency Medicine; FAMILY PHYSICIAN Internal Medicine
DX: R11.2 Nausea with vomiting, unspecified (principal); R10.9 Unspecified abdominal pain; R05.9 Cough, unspecified; E78.00 Pure hypercholesterolemia, unspecified; I10 Essential (primary) hypertension; J45.909 Unspecified asthma, uncomplicated; Z87.891 Personal history of nicotine dependence; I25.10 Atherosclerotic heart disease of native coronary artery without angina pectoris
CPT/HCPCS: 99284; 96374; 96375; 96361; 71046; 80053; 83690; 85025

== ENCOUNTER → 2024-12-22 09:43 | Outpatient (REF) | payer BC, SELFPAY | LOC: PAVMRI 09:43 | PROVIDERS: ATTENDING PHYSICIAN Hospitalist; FAMILY PHYSICIAN Internal Medicine; REFERRING PHYSICIAN Internal Medicine Cardiovascular Disease | DX: D32.0 Benign neoplasm of cerebral meninges (principal) | CPT/HCPCS: 70553; A9575 ==